=== PATIENT | male | born 1980 | race Caucasian/White ===

== ENCOUNTER 2018-05-17 15:22 | Emergency (ER) | payer BC ==
--- NOTE | 2018-05-17 20:09 | ERD ---
ER Documentation Chief Complaint Chief Complaint needle stick injury at work HPI 28-year-old male presents status post needlestick injury at work today. 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 No active bleeding. Unknown HIV, hepatitis status of his patient. No symptoms to report. Denies past medical history Denies allergies to medication. ROS All systems reviewed and are negative except as per history of present illness. Physical Exam Physical Exam Const: No acute distress Resp: Normal respiratory effort Skin: No visible injury over the left index finger, no active bleeding Neur: Awake and alert Psych: Normal Mood and Affect Results 24 hrs Laboratory Tests Test 05/17/18 15:48 Hepatitis B Surface Antigen NEGATIVE Hepatitis C Antibody NEGATIVE HIV (1&2) Antibody NEGATIVE Procedures/MDM Medical Decision Making: Patient appeared well on examination. No obvious injury status post there is a injury to the left index finger. Baseline hepatitis B, hepatitis C and HIV test negative. Will need to follow up with workers compensation or PCP for repeat labs if necessary depending to HIV, hepatitis status of other patient. Patient advised to follow up with PCP in 1-2 days. Patient advised to return to ED for new or worsening symptoms. Patient stable on discharge from the ED. Disclaimer: Inadvertent spelling and grammatical errors are likely due to EHR/dictation software use and do not reflect on the overall quality of patient care. Also, please note that the electronic time recorded on this note does not necessarily reflect the actual time of the patient encounter. AWA ROJAS DO May 17, 2018 20:09
== END 2018-05-18 04:46 | disposition home or self-care (01) ==
LOC: E/R 15:22
DX: S61.231A Puncture wound without foreign body of left index finger without damage to nail, initial encounter (principal); W46.0XXA Contact with hypodermic needle, initial encounter; Y92.89 Other specified places as the place of occurrence of the external cause
CPT/HCPCS: 86703; 86803; 87340; 99283